=== PATIENT | female | born 1975 | race Caucasian/White ===

== ENCOUNTER → 2023-07-12 | Outpatient (CLI) | payer OTHER, MEDICAID ==
[~2023-07-12] MED LIST: HYDR-3719; MORP15TA2 PO; MS C15TA8 PO
== END ==
LOC: M ONCR 10:00
PROVIDERS: ATTEND General Practice
DX: R91.8 Other nonspecific abnormal finding of lung field (principal); M89.8X8 Other specified disorders of bone, other site; M54.9 Dorsalgia, unspecified; F17.210 Nicotine dependence, cigarettes, uncomplicated; G89.29 Other chronic pain; J30.2 Other seasonal allergic rhinitis; R33.9 Retention of urine, unspecified; Z79.891 Long term (current) use of opiate analgesic; Z88.8 Allergy status to other drugs, medicaments and biological substances; Z91.018 Allergy to other foods

== ENCOUNTER 2023-07-15 07:54 | Outpatient (RCR) | payer OTHER, MEDICAID ==
[2023-07-20] MEDS ORDERED: DEXA4TA PO (08:22)
== END 2023-07-17 ==
LOC: M ONCR 07:54
PROVIDERS: ATTEND General Practice
DX: Z51.0 Encounter for antineoplastic radiation therapy (principal); C79.51 Secondary malignant neoplasm of bone

== ENCOUNTER 2023-07-28 07:54 | Outpatient (RCR) | payer OTHER, MEDICAID ==
[~2023-07-28 07:54] MED LIST changes: -ACET-683 PO; -IBUP200T46 PO; -OMEP-173 PO; -PROHANCE 279.3MG/ML 5ML VIAL ONE
[2023-07-28] MEDS ORDERED: ACET-683 PO (11:34)
[2023-07-28] MEDS ORDERED: IBUP200T46 PO (11:34)
[2023-07-28] MEDS ORDERED: OMEP-173 PO (11:55)
[2023-08-04] MEDS ORDERED: AMIT50TA PO (10:57)
[2023-08-16] MEDS ORDERED: AZIT500T5 (09:07)
[2023-08-16] MEDS ORDERED: CEFU1TAB22 (09:07)
[2023-08-16] MEDS ORDERED: ALBU8.5H (09:07)
[2023-08-16] MEDS ORDERED: B-12100021 PO (09:40)
[2023-08-16] MEDS ORDERED: FOLI800C PO (09:40)
== END 2023-08-16 ==
LOC: M ONCR 07:54
PROVIDERS: ATTEND General Practice
DX: Z51.0 Encounter for antineoplastic radiation therapy (principal); C79.51 Secondary malignant neoplasm of bone

== ENCOUNTER → 2023-07-28 | Outpatient (CLI) | payer MEDICAID, OTHER ==
[~2023-07-28] MED LIST changes: +ACET-683 PO; +DEXA4TA PO; +IBUP200T46 PO; +OMEP-173 PO; +PROHANCE 279.3MG/ML 5ML VIAL ONE
== END ==
LOC: M PLAIMG 09:24
PROVIDERS: ATTEND Internal Medicine Hematology & Oncology
DX: C34.90 Malignant neoplasm of unspecified part of unspecified bronchus or lung (principal); R53.1 Weakness; R90.89 Other abnormal findings on diagnostic imaging of central nervous system; M48.061 Spinal stenosis, lumbar region without neurogenic claudication; M47.816 Spondylosis without myelopathy or radiculopathy, lumbar region; M48.56XA Collapsed vertebra, not elsewhere classified, lumbar region, initial encounter for fracture
CPT/HCPCS: 70553; 72158; A9576

== ENCOUNTER → 2023-08-04 | Outpatient (CLI) | payer MEDICAID, OTHER ==
[~2023-08-04] MED LIST changes: +ACET-683 PO; +AMIT50TA PO; +IBUP200T46 PO; +OMEP-173 PO
== END ==
LOC: M ONCR 10:13
PROVIDERS: ATTEND General Practice
DX: C79.31 Secondary malignant neoplasm of brain (principal); C79.51 Secondary malignant neoplasm of bone; C34.11 Malignant neoplasm of upper lobe, right bronchus or lung; F17.210 Nicotine dependence, cigarettes, uncomplicated; J30.2 Other seasonal allergic rhinitis; Z79.891 Long term (current) use of opiate analgesic; Z79.899 Other long term (current) drug therapy; Z88.8 Allergy status to other drugs, medicaments and biological substances; Z91.018 Allergy to other foods

== ENCOUNTER → 2023-08-10 | Outpatient (CLI) | payer OTHER ==
[~2023-08-10] MED LIST changes: +ALBU8.5H; +AZIT500T5; +B-12100021 PO; +CEFU1TAB22; +FOLI800C PO; +LIDOCAINE 1% MDV 20ML VIAL As Ordered ONE
[2023-08-10 08:20] VITALS: TEMP 99.1
[2023-08-10 08:40] LABS: HEMATOCRIT 33.3 % (36.0-47.0); HEMOGLOBIN 10.7 g/dl (12.0-15.5); MEAN CORPUSCULAR HEMOGLOBIN 29.2 pg (27.0-33.0); MEAN CORPUSCULAR HGB CONC 32.1 g/dl (32.0-36.5); PLATELET COUNT, AUTOMATED 311 10^3/uL (150-450); RED BLOOD COUNT 3.66 10^6/uL (4.00-5.40); WHITE BLOOD COUNT 12.4 10^3/uL (4.0-10.0)
[2023-08-10 11:35] VITALS: BP 122/73; O2SAT 96
== END ==
LOC: M IRPRO 08:08
PROVIDERS: ATTEND Internal Medicine Pulmonary Disease
DX: C34.11 Malignant neoplasm of upper lobe, right bronchus or lung (principal); R91.8 Other nonspecific abnormal finding of lung field

== ENCOUNTER → 2023-08-16 | Outpatient (CLI) | payer MEDICAID, OTHER ==
[~2023-08-16] VITALS: Ht 162.6 cm; Wt 55.0 kg
[~2023-08-16] MED LIST changes: -LIDOCAINE 1% MDV 20ML VIAL As Ordered ONE
[2023-08-16 10:12] VITALS: BP 120/74; O2SAT 93
== END ==
LOC: M PAL 09:50
PROVIDERS: ATTEND Nurse Practitioner Adult Health
DX: G89.3 Neoplasm related pain (acute) (chronic) (principal); C79.31 Secondary malignant neoplasm of brain; C79.51 Secondary malignant neoplasm of bone; C34.11 Malignant neoplasm of upper lobe, right bronchus or lung; F17.210 Nicotine dependence, cigarettes, uncomplicated; Z51.5 Encounter for palliative care; J30.2 Other seasonal allergic rhinitis; Z79.891 Long term (current) use of opiate analgesic; Z79.899 Other long term (current) drug therapy; Z88.8 Allergy status to other drugs, medicaments and biological substances; Z91.018 Allergy to other foods; Z92.3 Personal history of irradiation

== ENCOUNTER → 2023-08-18 | Outpatient (CLI) | payer MEDICAID, OTHER | LOC: M CARPUL 08:19 | PROVIDERS: ATTEND Internal Medicine Pulmonary Disease | DX: J44.9 Chronic obstructive pulmonary disease, unspecified (principal) ==

== ENCOUNTER → 2023-08-22 | Outpatient (CLI) | payer MEDICAID, OTHER ==
[~2023-08-22] MED LIST changes: +LIDOCAINE 1% MDV 20ML VIAL As Ordered ONE
[2023-08-22 09:15] VITALS: TEMP 99.6
[2023-08-22 12:20] VITALS: BP 128/71; O2SAT 100
== END ==
LOC: M IRPRO 09:07
PROVIDERS: ATTEND Internal Medicine Hematology & Oncology
DX: C64.1 Malignant neoplasm of right kidney, except renal pelvis (principal); C34.90 Malignant neoplasm of unspecified part of unspecified bronchus or lung

== ENCOUNTER 2023-08-31 11:24 | Outpatient (RCR) | payer OTHER ==
[~2023-08-31 11:24] MED LIST changes: -LIDOCAINE 1% MDV 20ML VIAL As Ordered ONE
[2023-08-31] MEDS ORDERED: ONDA4TAB6 PO (13:01)
[2023-09-05] MEDS ORDERED: DEXA4TA PO ×2 (14:49→17:55)
[2023-09-05] MEDS ORDERED: ONDA-84 PO (17:53)
[2023-09-05] MEDS ORDERED: OLAN1TAB16 PO (17:56)
[2023-09-19] MEDS ORDERED: DEXA4TA PO (09:09)
== END 2023-09-16 ==
LOC: M ONCR 11:24
PROVIDERS: ATTEND General Practice
DX: Z51.0 Encounter for antineoplastic radiation therapy (principal); C79.31 Secondary malignant neoplasm of brain

== ENCOUNTER 2023-10-16 01:43 | Inpatient (IN) | payer MEDICAID, OTHER ==
[~2023-10-16] VITALS: Ht 162.6 cm; Wt 58.0 kg
[~2023-10-16 01:43] MED LIST changes: +AMIT24CA7 PO; +FURO40TA2 PO; +LEVO1TAB39 PO; +MS C30TA6 PO; +OLAN1TAB16 PO; +ONDA-282 PO; +ONDA-84 PO; +POTA-298 PO
[2023-10-16] MEDS ORDERED: ACETAMINOPHEN TAB 650MG DOSE (2X325MG) PO PRN (02:05)
[2023-10-16 03:30] VITALS: BP 148/74; TEMP 100.2; O2SAT 95
[2023-10-16] MEDS: IPRATROPIUM 0.5MG/ALBUTEROL 2.5MG INH SOL UD 3ML (DUONEB) NEB SCH (03:51)
[2023-10-16] MEDS: HYDROmorphone HCL 2MG/ML 1ML VIAL IV PRN (04:08)
[2023-10-16 04:15] LABS: VENOUS BASE EXCESS 2.5 (-2.0-2.0); VENOUS HCO3 25.5 MMOL/L (23.0-27.0); VENOUS O2 SATURATION 99.4 % (60.0-80.0); VENOUS PARTIAL PRESSURE CO2 33.8 mmHg (38.0-50.0); VENOUS PARTIAL PRESSURE O2 145.5 mmHg (30.0-50.0); VENOUS PH 7.496 UNITS (7.330-7.430); VENOUS STANDARD HCO3 26.7 MMOL/L; VENOUS TOTAL CO2 26.6 MMOL/L (24.0-28.0)
[2023-10-16 04:22] LABS: HEMATOCRIT 30.5 % (36.0-47.0); HEMOGLOBIN 9.7 g/dl (12.0-15.5); MEAN CORPUSCULAR HGB CONC 31.8 g/dl (32.0-36.5); MEAN CORPUSCULAR VOLUME 87.9 fl (80.0-96.0); PLATELET COUNT, AUTOMATED 218 10^3/uL (150-450); RED BLOOD COUNT 3.47 10^6/uL (4.00-5.40)
[2023-10-16] MEDS: PIPERACILLIN/TAZOBACTAM SOD 4.5 GM in D5W MINI-BAG PLUS 50 ML IV ONE (04:24)
[2023-10-16] MEDS: methylPREDNISolone 125MG 2ML VIAL IV SCH (04:24)
[2023-10-16 04:35] LABS: WHITE BLOOD COUNT 34.6 10^3/uL (4.0-10.0)
[2023-10-16] MEDS: guaiFENesin ER TABLET 600 MG TAB PO SCH (04:40)
[2023-10-16 04:44] LABS: ALBUMIN 2.2 G/DL (3.2-5.2); ALKALINE PHOSPHATASE 115 U/L (46-116); ALT/SGPT 26 U/L (7.0-40); AST/SGOT 38 U/L (<34); BILIRUBIN,TOTAL 0.4 MG/DL (0.3-1.2); BLOOD UREA NITROGEN 12 MG/DL (9-23); CALCIUM LEVEL 8.6 MG/DL (8.5-10.1); CARBON DIOXIDE LEVEL 29 MMOL/L (20-31); CHLORIDE LEVEL 96 MMOL/L (98-107); CREATININE FOR GFR 0.41 MG/DL (0.55-1.30); GLOMERULAR FILTRATION RATE > 60.0 (>58); GLUCOSE, FASTING 86 MG/DL (60-100); MAGNESIUM LEVEL 1.5 MG/DL (1.8-2.4); POTASSIUM SERUM 4.1 MMOL/L (3.5-5.1); SODIUM LEVEL 129 MMOL/L (136-145)
[2023-10-16] MEDS: MAG SULF 1GM/100ML (MAG RUN) 1 GM in IV 1 EA IV ONE (05:36)
[2023-10-16] MEDS ORDERED: FURO40TA2 PO (05:38)
[2023-10-16] MEDS ORDERED: POTA-151 PO (05:38)
[2023-10-16] MEDS ORDERED: LUBI24CA PO (05:38)
[2023-10-16] MEDS ORDERED: NICO1DIS10 TOP (05:38)
[2023-10-16] MEDS ORDERED: FOLI800T3 PO (05:38)
[2023-10-16] MEDS ORDERED: ANOR1AER PO (05:38)
[2023-10-16] MEDS ORDERED: MORP30TASA PO (05:38)
[2023-10-16] MEDS ORDERED: ONDA-84 PO (05:38)
[2023-10-16] MEDS ORDERED: MELO15TA28 PO (05:38)
[2023-10-16] MEDS ORDERED: MORP15TA2 PO (05:39)
[2023-10-16 08:00] VITALS: BP 118/70; TEMP 97.6; O2SAT 94
[2023-10-16] MEDS: SENOKOT S TAB PO SCH (09:40)
[2023-10-16] MEDS: ENOXAPARIN 40MG/0.4ML SYRINGE (J1650 PER 10MG) SC SCH (09:40)
[2023-10-16] MEDS: POTASSIUM CHLORIDE 10MEQ SR TABLET PO SCH (09:40)
[2023-10-16] MEDS: MOM 30ML SUSPENSION UDC PO SCH (09:40)
[2023-10-16] MEDS: PIPERACILLIN/TAZOBACTAM SOD 4.5 GM in D5W MINI-BAG PLUS 50 ML IV SCH (09:41)
[2023-10-16] MEDS: PANTOPRAZOLE 40MG TAB (PROTONIX) PO SCH (09:41)
[2023-10-16] MEDS: FUROSEMIDE 40MG/4ML VIAL IV SCH (09:41)
[2023-10-16] MEDS: MORPHINE 30 MG SA TAB PO SCH (09:42)
[2023-10-16 12:00] VITALS: BP 127/67; TEMP 97.9; O2SAT 98
[2023-10-16] MEDS ORDERED: ONDA-83 PO (12:06)
[2023-10-16] MEDS ORDERED: OLAN1TAB16 PO (12:06)
[2023-10-16] MEDS ORDERED: CETI5TA PO (12:06)
[2023-10-16] MEDS ORDERED: IBUP200C25 PO (12:06)
[2023-10-16] MEDS ORDERED: IRON PO (12:06)
[2023-10-16] MEDS ORDERED: AMIT-257 PO (12:06)
[2023-10-16] MEDS ORDERED: ACET-897 PO (12:06)
[2023-10-16] MEDS ORDERED: OMEP1CAP73 PO (12:06)
[2023-10-16] MEDS ORDERED: VENTAER INH (12:06)
[2023-10-16] MEDS ORDERED: VITA500T17 PO (12:06)
[2023-10-16] MEDS ORDERED: HOME MED LIST COMPLETE! XX SCH (12:15)
[2023-10-16 16:00] VITALS: BP 120/68; TEMP 97.5; O2SAT 95
[2023-10-16 19:18] VITALS: BP 113/69; TEMP 97.8; O2SAT 96
[2023-10-16 22:57] VITALS: BP 125/68; TEMP 98; O2SAT 96
[2023-10-17 03:37] VITALS: BP 117/64; TEMP 97.9; O2SAT 96
[2023-10-17 06:22] LABS: BLOOD UREA NITROGEN 11 MG/DL (9-23); CALCIUM LEVEL 8.6 MG/DL (8.5-10.1); CARBON DIOXIDE LEVEL 33 MMOL/L (20-31); CHLORIDE LEVEL 95 MMOL/L (98-107); CREATININE FOR GFR 0.32 MG/DL (0.55-1.30); GLOMERULAR FILTRATION RATE > 60.0 (>58); GLUCOSE, FASTING 179 MG/DL (60-100); POTASSIUM SERUM 4.2 MMOL/L (3.5-5.1); SODIUM LEVEL 132 MMOL/L (136-145)
[2023-10-17 06:23] LABS: HEMATOCRIT 25.8 % (36.0-47.0); MEAN CORPUSCULAR HEMOGLOBIN 27.3 pg (27.0-33.0); MEAN CORPUSCULAR VOLUME 88.1 fl (80.0-96.0); PLATELET COUNT, AUTOMATED 185 10^3/uL (150-450); RED BLOOD COUNT 2.93 10^6/uL (4.00-5.40)
[2023-10-17 07:04] LABS: ANISOCYTOSIS 1+; ATYPICAL LYMPH 1 % (0-5); LYMPHOCYTES 3 % (16-44); NEUTROPHILS 96 % (28-66); PLATELET ESTIMATE NORMAL (NORMAL)
[2023-10-17 07:05] LABS: HYPERSEGMENTED POLYS 2+; HYPOCHROMASIA 1+
[2023-10-17 07:18] VITALS: BP 139/78; TEMP 98; O2SAT 95
[2023-10-17] MEDS: FUROSEMIDE 40MG/4ML VIAL IV SCH (09:52)
[2023-10-17 11:56] VITALS: BP 131/72; TEMP 98.1; O2SAT 97
[2023-10-17] MEDS: methylPREDNISolone 40MG 1ML VIAL IV SCH (12:03)
[2023-10-17 15:37] VITALS: BP 123/68; TEMP 97.6; O2SAT 97
[2023-10-17 19:33] VITALS: BP 126/74; TEMP 98; O2SAT 96
[2023-10-18] MEDS: VANCOMYCIN HCL 750 MG, VIAL MATE ADAPTER 1 EACH in D5W 250 ML IV ONE (00:11)
[2023-10-18] MEDS: VANCOMYCIN HCL 500 MG in D5W MINI-BAG PLUS 100 ML IV ONE (01:11)
[2023-10-18] MEDS: HYDROMORPHONE HCL 0.5 MG/ 0.5 ML SYRINGE IV PRN (02:23)
[2023-10-18 03:58] VITALS: BP 139/92; TEMP 98.1; O2SAT 97
[2023-10-18] MEDS: ONDANSETRON 4MG 2ML VIAL IV PRN (05:49)
[2023-10-18] MEDS: VANCOMYCIN HCL 1,000 MG, VIAL MATE ADAPTER 1 EACH in D5W 250 ML IV SCH ×2 (05:51→12:20)
[2023-10-18 06:17] LABS: BASO % 0.1 % (0.0-1.0); HEMATOCRIT 26.5 % (36.0-47.0); HEMOGLOBIN 8.2 g/dl (12.0-15.5); LYMPH # 0.6 10^3/uL (1.5-5.0); LYMPH % 3.6 % (24.0-44.0); MEAN CORPUSCULAR HEMOGLOBIN 27.2 pg (27.0-33.0); MEAN CORPUSCULAR HGB CONC 30.9 g/dl (32.0-36.5); MEAN CORPUSCULAR VOLUME 87.7 fl (80.0-96.0); MONO % 0.2 % (2.0-8.0); NEUTROPHILS # 15.4 10^3/uL (1.5-8.5); PLATELET COUNT, AUTOMATED 147 10^3/uL (150-450); RED BLOOD COUNT 3.02 10^6/uL (4.00-5.40); WHITE BLOOD COUNT 16.2 10^3/uL (4.0-10.0)
[2023-10-18 06:46] LABS: BLOOD UREA NITROGEN 13 MG/DL (9-23); CALCIUM LEVEL 8.8 MG/DL (8.5-10.1); CARBON DIOXIDE LEVEL 35 MMOL/L (20-31); CHLORIDE LEVEL 93 MMOL/L (98-107); CREATININE FOR GFR 0.32 MG/DL (0.55-1.30); GLOMERULAR FILTRATION RATE > 60.0 (>58); GLUCOSE, FASTING 147 MG/DL (60-100); POTASSIUM SERUM 4.3 MMOL/L (3.5-5.1); SODIUM LEVEL 131 MMOL/L (136-145)
[2023-10-18 07:12] VITALS: TEMP 98.5; O2SAT 96
[2023-10-18 07:29] VITALS: BP 168/82
[2023-10-18] MEDS: TORSEMIDE 20 MG TAB PO SCH (08:10)
[2023-10-18] MEDS: MAGNESIUM CITRATE 300ML BTL PO ONE (09:15)
[2023-10-18 15:12] VITALS: BP 133/72; TEMP 98.2; O2SAT 94
[2023-10-18 17:05] VITALS: BP 138/82; TEMP 97.9; O2SAT 89
[2023-10-18 20:00] VITALS: BP 146/90; TEMP 98.2; O2SAT 98
[2023-10-19 03:38] VITALS: O2SAT 83
[2023-10-19 03:42] VITALS: O2SAT 93
[2023-10-19 04:00] VITALS: BP 134/76; TEMP 98.2; O2SAT 88
[2023-10-19 06:03] LABS: EOS % 0.1 % (0.0-3.0); HEMATOCRIT 28.4 % (36.0-47.0); HEMOGLOBIN 8.9 g/dl (12.0-15.5); LYMPH # 0.9 10^3/uL (1.5-5.0); LYMPH % 9.6 % (24.0-44.0); MEAN CORPUSCULAR HEMOGLOBIN 27.3 pg (27.0-33.0); MEAN CORPUSCULAR HGB CONC 31.3 g/dl (32.0-36.5); MEAN CORPUSCULAR VOLUME 87.1 fl (80.0-96.0); MONO # 0.1 10^3/uL (0.0-0.8); MONO % 0.9 % (2.0-8.0); NEUTROPHILS # 8.2 10^3/uL (1.5-8.5); NEUTROPHILS % 84.9 % (36.0-66.0); PLATELET COUNT, AUTOMATED 141 10^3/uL (150-450); RED BLOOD COUNT 3.26 10^6/uL (4.00-5.40); WHITE BLOOD COUNT 9.6 10^3/uL (4.0-10.0)
[2023-10-19 07:10] VITALS: O2SAT 91
[2023-10-19 07:44] LABS: BLOOD UREA NITROGEN 13 MG/DL (9-23); CALCIUM LEVEL 8.7 MG/DL (8.5-10.1); CARBON DIOXIDE LEVEL 32 MMOL/L (20-31); CHLORIDE LEVEL 93 MMOL/L (98-107); CREATININE FOR GFR 0.35 MG/DL (0.55-1.30); GLOMERULAR FILTRATION RATE > 60.0 (>58); GLUCOSE, FASTING 85 MG/DL (60-100); POTASSIUM SERUM 4.3 MMOL/L (3.5-5.1); SODIUM LEVEL 129 MMOL/L (136-145)
[2023-10-19] MEDS: methylPREDNISolone 40MG 1ML VIAL IV SCH (08:50)
[2023-10-19 12:00] VITALS: BP 148/83; TEMP 98.1; O2SAT 93
[2023-10-19 13:52] VITALS: O2SAT 9
[2023-10-19] MEDS ORDERED: AMOX875T2 PO (15:46)
[2023-10-19] MEDS ORDERED: SENN-52 PO (15:46)
[2023-10-19] MEDS ORDERED: PRED10TA2 PO (15:46)
[2023-10-19] MEDS ORDERED: TORS20TA2 PO (15:46)
[2023-10-19] MEDS ORDERED: PANT40TA29 PO (15:46)
== END 2023-10-19 18:10 | disposition home or self-care (01) | DRG 871 ==
LOC: M PCU 02:01 → M MSPAV 10-18 17:01
PROVIDERS: ADMIT Preventive Medicine Undersea and Hyperbaric Medicine; ATTEND Internal Medicine Nephrology
DX: A41.9 Sepsis, unspecified organism (principal); J18.9 Pneumonia, unspecified organism; J96.21 Acute and chronic respiratory failure with hypoxia; C34.11 Malignant neoplasm of upper lobe, right bronchus or lung; C79.01 Secondary malignant neoplasm of right kidney and renal pelvis; C78.7 Secondary malignant neoplasm of liver and intrahepatic bile duct; C79.71 Secondary malignant neoplasm of right adrenal gland; C79.51 Secondary malignant neoplasm of bone; E46 Unspecified protein-calorie malnutrition; C79.89 Secondary malignant neoplasm of other specified sites; F17.200 Nicotine dependence, unspecified, uncomplicated; F11.90 Opioid use, unspecified, uncomplicated; D64.9 Anemia, unspecified; K59.00 Constipation, unspecified; Z92.3 Personal history of irradiation; R33.9 Retention of urine, unspecified; Z91.018 Allergy to other foods; Z88.6 Allergy status to analgesic agent; Z79.899 Other long term (current) drug therapy; L89.151 Pressure ulcer of sacral region, stage 1

== ENCOUNTER → 2023-10-25 | Outpatient (CLI) | payer OTHER ==
[~2023-10-25] MED LIST changes: +ACET-897 PO; +AMIT-257 PO; +AMOX875T2 PO; +ANOR1AER PO; +CETI5TA PO; +FOLI800T3 PO; +IBUP200C25 PO; +IRON PO; +LUBI24CA PO; +MELO15TA28 PO; +MORP30TASA PO; +NICO1DIS10 TOP; +OMEP1CAP73 PO; +ONDA-83 PO; +PANT40TA29 PO; +POTA-151 PO; +PRED10TA2 PO; +SENN-52 PO; +TORS20TA2 PO; +VENTAER INH; +VITA500T17 PO
== END ==
LOC: M PLARAD 12:51
PROVIDERS: ATTEND Internal Medicine Hematology & Oncology
DX: C34.11 Malignant neoplasm of upper lobe, right bronchus or lung (principal)
CPT/HCPCS: 78815; A9552